=== PATIENT | male | born 1965 | race Caucasian/White ===

== ENCOUNTER 2017-04-28 19:13 | Observation (INO) | payer OTHER ==
[2017-04-28] VITALS (12 sets, daily range): BP systolic 122–181; BP diastolic 72–110; PULSE 75–112; RESP 16–20; TEMP 96.1–98.2; O2SAT 97–99
[~2017-04-28] VITALS: Ht 182.9 cm; Wt 91.4 kg
[~2017-04-28 19:13] MED LIST: AMLO5 PO; ASPI325T PO; ATOR40TA49 PO; LEVE500 PO
[2017-04-28] MEDS: NITROGLYCERIN 0.4 MG SL 25 TABS/BTL SL SCH ×3 (19:44→20:12)
[2017-04-28] MEDS ORDERED: ASPIRIN 81 MG CHEW TAB PO ONE (19:45)
[2017-04-28] MEDS ORDERED: SODIUM CHLORIDE 0.9% FLUSH 10 ML FLUSH IVF PRN (19:45)
[2017-04-28 19:47] LABS: AUTOMATED NEUTROPHIL # 8.1 TH/MM3 (1.8-7.7); BASOPHIL # 0.1 TH/MM3 (0-0.2); BASOPHIL % 1.1 % (0.0-2.0); EOSINOPHIL # 0.2 TH/MM3 (0-0.4); EOSINOPHIL % 1.8 % (0.0-4.0); HEMATOCRIT 49.2 % (39.0-51.0); HEMO FLAGS DIFF FINAL; LYMPH % 19.3 % (9.0-44.0); LYMPHOCYTE # 2.2 TH/MM3 (1.0-4.8); MEAN CELL VOLUME 94.5 FL (80.0-100.0); MEAN CORPUSCULAR HEMOGLOBIN 32.6 PG (27.0-34.0); MEAN CORPUSCULAR HGB CONC 34.5 % (32.0-36.0); MONO % 7.5 % (0.0-8.0); NEUT % 70.3 % (16.0-70.0); PLATELET COUNT 175 TH/MM3 (150-450); RED BLOOD COUNT 5.21 MIL/MM3 (4.50-5.90); RED CELL DISTRIBUTION WIDTH 12.2 % (11.6-17.2); WHITE BLOOD COUNT 11.5 TH/MM3 (4.0-11.0)
[2017-04-28 19:57] LABS: CHLORIDE 105 MEQ/L (98-107); POTASSIUM 3.7 MEQ/L (3.5-5.1); SODIUM (NA) 137 MEQ/L (136-145)
[2017-04-28 20:00] LABS: ANION GAP 7 MEQ/L (5-15); BLOOD UREA NITROGEN 15 MG/DL (7-18); MAGNESIUM 2.2 MG/DL (1.5-2.5)
[2017-04-28 20:03] LABS: APTT (PATIENT) 27.6 SEC (24.3-30.1); GLOMERULAR FILTRATION RATE 78 ML/MIN (>89); PROTHROMBIN TIME - PATIENT 11.3 SEC (9.8-11.6)
[2017-04-28] MEDS: SODIUM CHLOR 0.9% 1000 ML INJ 1,000 ML IV SCH ×2 (20:05→21:19)
[2017-04-28 20:06] LABS: CREATINE KINASE 128 U/L (39-308)
[2017-04-28 20:19] LABS: CKMB 1.1 NG/ML (0.5-3.6)
--- NOTE | 2017-04-28 20:21 | PD ---
HPI Chief Complaint: Chest Pain Time Seen by Provider: 19:30 Travel History International Travel<30 days: No Contact w/Intl Traveler<30days: No Traveled to known affect area: No History of Present Illness HPI 51 year-old male presents to the emergency department by private transportation the care of his spouse for evaluation of retrosternal chest pain and tightness 6 /10 in intensity radiating into the neck and jaw and also complains of left shoulder pain that is worsened by range of motion. Patient does not report any shortness of breath but has felt nauseated. states that she called him stating that he felt like he was having some sweats as well. Pain does not refer into his back and he denies any abdominal pain. Patient has history of CAD with previous angioplasty by Dr. Rosario several years ago and has hypertension and does smoke cigarettes. Patient denies diabetes. Patient states he tries to be compliant with his medications. Patient did not take any aspirin prior to arrival to the emergency department. Patient does not take nitroglycerin. Patient also admits to occasional alcohol use. Patient reports that his brother at age 57 just recently of a heart attack in his father within the past year from myocardial infarction. [facility] Past Medical History Narrative Medical CAD hypertension dyslipidemia tia seizure pancreatitis GERD cholecystectomy and angioplasty positive tobacco use positive alcohol use; nursing notes reviewed Cancer: No Cardiovascular Problems: Yes High Cholesterol: Yes Diminished Hearing: No Endocrine: No Gastrointestinal Disorders: Yes GERD: Yes Genitourinary: No Hypertension: Yes Immune Disorder: No Implanted Vascular Access Dvce: No Musculoskeletal: No Neurologic: No Psychiatric: No Reproductive: No Respiratory: No Pancreatitis: Yes Past Surgical History Abdominal Surgery: Yes (GALLBLADDER) Cardiac Surgery: Yes (ANGIOPLASTY 2004) Cholecystectomy: Yes Other Surgery: Yes Social History Alcohol Use: Yes (RARELY) Tobacco Use: Yes (1 PPD) Substance Use: No Allergies-Medications (Allergen,Severity, Reaction): Coded Allergies: clindamycin (Unverified Allergy, Severe, Respiratory Failure, 02/04/17) codeine (Unverified Allergy, Intermediate, itch, 02/04/17) Reported Meds & Prescriptions Reported Meds & Active Scripts Active No Active Prescriptions or Reported Medications Review of Systems Except as stated in HPI: all other systems reviewed are Neg Musculoskeletal: Positive: Pain (left shoulder increased pain with range of motion and limited abduction) Physical Exam Narrative GENERAL: Well-developed well-nourished male mildly anxious in no respiratory distress SKIN: Warm and dry. HEAD: Normocephalic. EYES: No scleral icterus. No injection or drainage. NECK: Supple, trachea midline. No JVD or lymphadenopathy. CARDIOVASCULAR: Regular rate and rhythm without murmurs, gallops, or rubs. RESPIRATORY: Breath sounds equal bilaterally. No accessory muscle use. GASTROINTESTINAL: Abdomen soft, non-tender, nondistended. MUSCULOSKELETAL: No cyanosis, or edema. Attention left shoulder no deformity no soft tissue swelling or redness no induration tender to palpation with increased pain on range of motion especially with attempted abduction distally extremity is neurovascular tendon intact with 2+ radial and ulnar pulses capillary refill brisk and less than 2 seconds per digit sensory exam intact capillary refill brisk and less than 2 seconds. BACK: Nontender without obvious deformity. No CVA tenderness. Data Data Last Documented VS Vital Signs Date Time Temp Pulse Resp B/P (MAP) Pulse Ox O2 Delivery O2 Flow Rate FiO2 04/28/17 20:28 141/85 (103) 04/28/17 20:00 90 04/28/17 19:50 16 04/28/17 19:45 98.2 98 Nasal Cannula 2.00 Orders Orders Electrocardiogram (04/28/17 19:31) Basic Metabolic Panel (Bmp) (04/28/17 19:31) Ckmb (Isoenzyme) Profile (04/28/17 19:31) Complete Blood Count With Diff (04/28/17 19:31) Magnesium (Mg) (04/28/17 19:31) Prothrombin Time / Inr (Pt) (04/28/17 19:31) Act Partial Throm Time (Ptt) (04/28/17 19:31) Troponin I (04/28/17 19:31) Chest, Single Ap (04/28/17 19:31) Ecg Monitoring (04/28/17 19:31) Bilateral Bp Monitoring (04/28/17 19:31) Iv Access Insert/Monitor (04/28/17 19:31) Oximetry (04/28/17 19:31) Oxygen Administration (04/28/17 19:31) Aspirin Chew (Aspirin Chew) (04/28/17 19:45) Nitroglycerin Sl (Nitrostat Sl) (04/28/17 19:45) Sodium Chlor 0.9% 1000 Ml Inj (Ns 1000 M (04/28/17 20:00) CKMB (04/28/17 19:35) CKMB% (04/28/17 19:35) Ketorolac Inj (Toradol Inj) (04/28/17 20:30) Lipase (04/28/17 19:35) Admit Order (Ed Use Only) (04/28/17 ) Gas Desulfurizer / Telemetry JOSE LUIS.Q8H (04/28/17 20:43) Diet Heart Healthy (04/29/17 Breakfast) Activity Oob With Assistance (04/28/17 20:43) Notify Dr: Other (04/28/17 20:43) Labs Laboratory Tests Test 04/28/17 19:35 White Blood Count 11.5 TH/MM3 Red Blood Count 5.21 MIL/MM3 Hemoglobin 17.0 GM/DL Hematocrit 49.2 % Mean Corpuscular Volume 94.5 FL Mean Corpuscular Hemoglobin 32.6 PG Mean Corpuscular Hemoglobin Concent 34.5 % Red Cell Distribution Width 12.2 % Platelet Count 175 TH/MM3 Mean Platelet Volume 10.6 FL Neutrophils (%) (Auto) 70.3 % Lymphocytes (%) (Auto) 19.3 % Monocytes (%) (Auto) 7.5 % Eosinophils (%) (Auto) 1.8 % Basophils (%) (Auto) 1.1 % Neutrophils # (Auto) 8.1 TH/MM3 Lymphocytes # (Auto) 2.2 TH/MM3 Monocytes # (Auto) 0.9 TH/MM3 Eosinophils # (Auto) 0.2 TH/MM3 Basophils # (Auto) 0.1 TH/MM3 CBC Comment DIFF FINAL Differential Comment Prothrombin Time 11.3 SEC Prothromb Time International Ratio 1.0 RATIO Activated Partial Thromboplast Time 27.6 SEC Blood Urea Nitrogen 15 MG/DL Creatinine 1.00 MG/DL Random Glucose 99 MG/DL Calcium Level 8.4 MG/DL Magnesium Level 2.2 MG/DL Sodium Level 137 MEQ/L Potassium Level 3.7 MEQ/L Chloride Level 105 MEQ/L Carbon Dioxide Level 25.0 MEQ/L Anion Gap 7 MEQ/L Estimat Glomerular Filtration Rate 78 ML/MIN Total Creatine Kinase 128 U/L Creatine Kinase MB 1.1 NG/ML Troponin I LESS THAN 0.02 NG/ML Lipase 388 U/L MDM Medical Decision Making Medical Screen Exam Complete: Yes Emergency Medical Condition: Yes Medical Record Reviewed: Yes Interpretation(s) EKG: Normal sinus rhythm rate [address] elevation or injury pattern change noted nonspecific T-wave inversion inferiorly Chest x-ray: No acute abnormality CBC & BMP Diagram 04/28/17 19:35 Calcium Level 8.4 L, Magnesium Level 2.2 Troponin I: Less than 0.02, not elevated; CK total 128, not elevated MB 1.1, not elevated Differential Diagnosis Chest pain, ACS, OR, atypical chest pain, esophageal spasm, pancreatitis, aneurysm, dissection, left shoulder bursitis rotator cuff injury musculoskeletal pain Narrative Course Patient placed on playground monitor and continuous pulse oximetry IV access obtained specimens collected and sent for resulting EKG performed which reveals no acute injury pattern sinus rhythm; patient administered aspirin 162 mg by mouth and sublingual nitroglycerin Pain 7/10 in intensity has decreased to 2/10 intensity after 2 nitroglycerin and after third nitroglycerin discomfort is 0/10 in intensity; blood pressure has improved to a more normalized range. Patient continues to demonstrate range of motion pain to the left shoulder joint. Extremities otherwise neurovascular tendon intact. Cardiac enzymes CK and troponin I are found to be in normal range: Remainder of lab findings are grossly range: Chest x-ray reveals no acute process @ 8:23 PM patient cp: 0/10; patient is agreeable to [facility] obs admission @ 10:24 again complains of left shoulder pain with range of motion worsens with internal/external rotation specifically extension and abduction increased pain significantly localized to the superior aspect of the left shoulder and has inability to completely abduct greater than 90 concerning for rotator cuff injury as well as inflammatory pain no chest pain no chest tightness no referred neck or jaw pain that were present when he arrived prior to receiving sublingual nitroglycerin states he has had this shoulder pain for a couple days and doesn't recall specific injury extremity is otherwise neurovascularly tendon intact. Patient did receive a one-time dose of Toradol with only minimal relief and patient reports he has taken pain medication before such as Percocet for Lortab with out any adverse reaction. Plan to give patient one time dose of Percocet 5/325 however have been informed by patient's nurse that she has a call out to the admitting physician will defer to the admitting physician for pain management. Physician Communication Physician Communication call placed to patient's party host; call placed to [facility] service for MORTGAGE ADVISOR obs HHPO Diagnosis Primary Impression: Chest pain Qualified Codes: R07.2 - Precordial pain Additional Impression: Pain of left shoulder joint on movement Admitting Information Admitting Physician Requests: Observation Scripts No Active Prescriptions or Reported Meds Katie Obregon MD Apr 28, 2017 20:21
[2017-04-28] MEDS ORDERED: KETOROLAC TROMETHAMINE 30 MG/ML (IVP) VIAL IV PUSH ONE (20:30)
--- NOTE | 2017-04-28 20:52 | RADRPT ---
EXAM DATE/TIME: 04/28/2017 19:52 [place] COMPARISON: CHEST SINGLE AP, May 26, 2013, 8:57. INDICATIONS : Chest pain. MEDICAL HISTORY : Hypertension. SURGICAL HISTORY : None. ENCOUNTER: Initial ACUITY: 1 day PAIN SCORE: 5/10 LOCATION: Left chest FINDINGS: Portable AP view of the chest demonstrates a normal-sized cardiac silhouette. No effusion, consolidat ion, or pneumothorax is visualized. The bones and soft tissues demonstrate no acute abnormality. EKG lines overlie the patient. CONCLUSION: No acute cardiopulmonary abnormality is identified. Maco Ferris MD on April 28, 2017 at 20:50 Board Certified Radiologist. This report was verified electronically.
[2017-04-28] MEDS: SODIUM CHLORIDE 0.9% FLUSH 10 ML FLUSH IV FLUSH SCH (21:00)
[2017-04-28] MEDS ORDERED: NITROGLYCERIN 0.4 MG SL 25 TABS/BTL SL PRN ×2 (21:00)
[2017-04-28] MEDS ORDERED: SODIUM CHLORIDE 0.9% FLUSH 10 ML FLUSH IV FLUSH PRN (21:00)
[2017-04-28] MEDS: METOPROLOL TARTRATE 25 MG TAB PO SCH (21:24)
[2017-04-28] MEDS: FAMOTIDINE 20 MG TAB PO SCH (21:24)
[2017-04-28] MEDS: ENOXAPARIN SODIUM 100 MG/ML SYRINGE SQ SCH (21:25)
[2017-04-28 23:00] LABS: CREATINE KINASE 106 U/L (39-308)
[2017-04-29] VITALS (7 sets, daily range): BP systolic 121–186; BP diastolic 66–109; PULSE 65–77; RESP 18–20; TEMP 96–97.8; O2SAT 96–99
[2017-04-29] MEDS ORDERED: HYDROmorphone HCL PF 1 MG/ML VIAL IV PUSH ONE (00:45)
[2017-04-29 02:27] LABS: CREATINE KINASE 109 U/L (39-308)
[2017-04-29] MEDS: SODIUM CHLOR 0.9% 1000 ML INJ 1,000 ML IV SCH (04:22)
[2017-04-29 06:51] LABS: POTASSIUM 4.3 MEQ/L (3.5-5.1)
[2017-04-29 06:57] LABS: BICARBONATE 28.3 MEQ/L (21.0-32.0)
[2017-04-29 06:58] LABS: AUTOMATED NEUTROPHIL # 5.9 TH/MM3 (1.8-7.7); BASOPHIL % 0.4 % (0.0-2.0); EOSINOPHIL # 0.2 TH/MM3 (0-0.4); EOSINOPHIL % 2.4 % (0.0-4.0); HEMATOCRIT 44.5 % (39.0-51.0); LYMPHOCYTE # 2.3 TH/MM3 (1.0-4.8); MEAN CELL VOLUME 94.4 FL (80.0-100.0); MEAN CORPUSCULAR HEMOGLOBIN 32.1 PG (27.0-34.0); MONO % 9.7 % (0.0-8.0); NEUT % 62.5 % (16.0-70.0); PLATELET COUNT 137 TH/MM3 (150-450); RED BLOOD COUNT 4.71 MIL/MM3 (4.50-5.90); RED CELL DISTRIBUTION WIDTH 12.3 % (11.6-17.2); WHITE BLOOD COUNT 9.3 TH/MM3 (4.0-11.0)
[2017-04-29 07:08] LABS: HEMO FLAGS DIFF FINAL
[2017-04-29] MEDS: METOPROLOL TARTRATE 25 MG TAB PO SCH (08:03)
[2017-04-29] MEDS: ENOXAPARIN SODIUM 100 MG/ML SYRINGE SQ SCH (08:03)
[2017-04-29] MEDS: FAMOTIDINE 20 MG TAB PO SCH (08:03)
[2017-04-29] MEDS: SODIUM CHLORIDE 0.9% FLUSH 10 ML FLUSH IV FLUSH SCH (08:04)
[2017-04-29] MEDS ORDERED: ASPIRIN 325 MG TAB PO SCH (09:00)
--- NOTE | 2017-04-29 09:16 | EKG ---
Date Performed: 04/29/2017 Time Performed: 01:28:34 PTAGE: 51 years EKG: Sinus rhythm NORMAL ECG Since PREVIOUS TRACING , no significant change noted PREVIOUS TRACIN04/28/2017 22.35 DOCTOR: Shabnam Childress Interpretating Date/Time 04/29/2017 09:14:57
--- NOTE | 2017-04-29 09:16 | EKG ---
Date Performed: 04/28/2017 Time Performed: 22:35:23 PTAGE: 51 years EKG: Sinus rhythm NONSPECIFIC T-WAVE ABNORMALITY ABNORMAL ECG Since PREVIOUS TRACING , no significant change noted PREVIOUS TRACIN04/28/2017 19.29 DOCTOR: Shabnam Childress Interpretating Date/Time 04/29/2017 09:15:10
--- NOTE | 2017-04-29 09:17 | EKG ---
Date Performed: 04/28/2017 Time Performed: 19:29:32 PTAGE: 51 years EKG: Sinus rhythm NONSPECIFIC T-WAVE ABNORMALITY BORDERLINE ECG Since PREVIOUS TRACING , no significant change noted DOCTOR: Shabnam Childress Interpretating Date/Time 04/29/2017 09:15:52
[2017-04-29] MEDS ORDERED: ACETAMINOPHEN/HYDROcodone 325 MG/7.5 MG TAB PO ONE (13:15)
[2017-04-29] MEDS ORDERED: LIDOCAINE HCL 5% PATCH T-DERMAL SCH ×2 (13:15→13:19)
--- NOTE | 2017-04-29 13:56 | EKG ---
Date Performed: 04/29/2017 Time Performed: 11:32:21 PTAGE: 51 years EKG: Sinus rhythm NORMAL ECG Since PREVIOUS TRACING , no significant change noted PREVIOUS TRACIN04/29/2017 01.28 DOCTOR: Shabnam Childress Interpretating Date/Time 04/29/2017 13:55:41
--- NOTE | 2017-04-29 14:18 | HHI.HP ---
HPI Service [facility] Primary Care Physician Non-Staff Admission Diagnosis chest pain Diagnoses: (1) Chest pain Diagnosis: Principal (2) Pain of left shoulder joint on movement Diagnosis: Principal Chief Complaint: Chest pain, left shoulder pain Travel History International Travel<30 Days: No Contact w/Intl Traveler <30 Da: No Traveled to Known Affected Are: No History of Present Illness Written by Jame Lopez, acting as scribe for Dr. Fregoso on 04/29/17 at 14 :13. 51 year-old male with known history of hypertension, hyperlipidemia, chronic obstructive pulmonary disease, history of pancreatitis, coronary artery disease who presented to the hospital because of chest pain and left shoulder pain. Patient states that he is had over 2 week history of Intermittent chest pain and left shoulder pain. Patient was trying to obtain outpatient follow-up with his pivot maker Dr. Rosario. However, patient states that there were no appointments available until May 06. Over last 2 weeks he has been experiencing chest discomfort which he describes as a tightness sensation in the middle part of his chest with radiation to his left shoulder. He did have some associated nausea. He denied any vomiting, lower extremity edema, shortness of breath, or dyspnea. Patient indicates that the pain was made worse by lying down. He indicates that he is been under a lot of stress lately with the loss of his mother, father and brother. His brother just from heart attack. The patient was home by himself yesterday and he developed the chest discomfort with left shoulder pain with associated nausea, he was concerned that it may be related to his heart so he had his bring him to the hospital for evaluation. Patient had workup done emergency department which was unremarkable. He was given Toradol emergency department with relief of his pain. ER physician recommended patient be observed and chest pain center for further evaluation and management. His states that he is not compliant with his home meds. Review of Systems Cardiovascular: COMPLAINS OF: Chest pain Gastrointestinal: COMPLAINS OF: Nausea Musculoskeletal: COMPLAINS OF: Joint pain (left shoulder) Except as stated in HPI: all other systems reviewed are Neg Past Family Social History Past Medical History Hypertension Hyperlipidemia History of pancreatitis History TIA Chronic tobacco use Chronic obstructive pulmonary disease Past Surgical History Cardiac catheterization with angioplasty Cholecystectomy Reported Medications Patient not taking any medications at this time Allergies: Coded Allergies: clindamycin (Unverified Allergy, Severe, Respiratory Failure, 02/04/17) codeine (Unverified Allergy, Intermediate, itch, 02/04/17) Family History Reviewed is significant for early onset heart disease. Social History Patient continues to smoke 2 pack a cigarettes a day since his 20s. He drinks 2 glasses of wine 4-5 times weekly, denies any illicit drugs Physical Exam Vital Signs Vital Signs Date Time Temp Pulse Resp B/P (MAP) Pulse Ox O2 Delivery O2 Flow Rate FiO2 04/29/17 11:51 96 21 04/29/17 08:00 65 04/29/17 08:00 96.0 68 18 165/105 (125) 97 04/29/17 04:00 96.0 77 20 121/66 (84) 96 04/28/17 23:26 75 04/28/17 23:15 96.1 79 20 158/98 (118) 97 04/28/17 22:30 77 16 148/72 (97) 04/28/17 21:27 98 Nasal Cannula 2.00 04/28/17 20:56 77 16 122/73 (89) 99 Nasal Cannula 2.00 04/28/17 20:28 141/85 (103) 04/28/17 20:10 153/91 (111) 04/28/17 20:00 90 143/83 (103) 04/28/17 19:55 92 137/86 (103) 04/28/17 19:50 96 16 164/79 (107) 04/28/17 19:45 98.2 98 16 180/101 (127) 98 Nasal Cannula 2.00 04/28/17 19:30 112 16 181/110 (133) 98 04/28/17 19:30 98 04/28/17 19:30 98 Nasal Cannula 2.00 Physical Exam GENERAL: Well-developed, well-nourished, in no acute distress. alert and orientated HEENT: Head is normocephalic without any lesions or masses noted. Facial features are symmetric. Eyes: Extraocular muscles are intact. Conjunctivae were clear. Oropharyngeal: Pharynx without any erythema edema. Tongue is midline without deviation. Buccal mucosa is moist without any masses or lesions NECK: . No JVD, no bruits are appreciated CARDIAC: Regular rhythm, regular rate. S1/S2 are heard. No murmurs gallops or rubs. Patient has reproducible palpable tenderness noted over the right sternal border which he describes as exact pain that he been experiencing the last couple weeks LUNGS: Clear to auscultation bilaterally. No wheeze, rhonchi or rales. No use of accessory muscles on inspiration or expiration. ABDOMEN: Soft, nontender. Nondistended. Bowel sounds heard in all 4 quadrants. No organomegaly or masses. Negative rebound, negative guarding EXTREMITIES: No edema, pulses are equal bilaterally. No cyanosis or clubbing NEUROLOGY: No facial droop, no slurred speech, no tremors Psychiatry: Mood and affect appear appropriate. MSK: Patient does have significant tenderness noted over the left shoulder, there is left trapezius musculature tenderness, there is pain on left shoulder with resistance of external rotation. This pain is reproducible and exact pain that he been experiencing. + Edwards test on left arm. no TTP over biceps groove. Laboratory Laboratory Tests Test 04/28/17 19:35 04/28/17 22:30 04/29/17 01:55 04/29/17 06:25 White Blood Count 11.5 9.3 Red Blood Count 5.21 4.71 Hemoglobin 17.0 15.1 Hematocrit 49.2 44.5 Mean Corpuscular Volume 94.5 94.4 Mean Corpuscular Hemoglobin 32.6 32.1 Mean Corpuscular Hemoglobin Concent 34.5 34.0 Red Cell Distribution Width 12.2 12.3 Platelet Count 175 137 Mean Platelet Volume 10.6 11.7 Neutrophils (%) (Auto) 70.3 62.5 Lymphocytes (%) (Auto) 19.3 25.0 Monocytes (%) (Auto) 7.5 9.7 Eosinophils (%) (Auto) 1.8 2.4 Basophils (%) (Auto) 1.1 0.4 Neutrophils # (Auto) 8.1 5.9 Lymphocytes # (Auto) 2.2 2.3 Monocytes # (Auto) 0.9 0.9 Eosinophils # (Auto) 0.2 0.2 Basophils # (Auto) 0.1 0.0 CBC Comment DIFF FINAL DIFF FINAL Differential Comment Prothrombin Time 11.3 Prothromb Time International Ratio 1.0 Activated Partial Thromboplast Time 27.6 Blood Urea Nitrogen 15 14 Creatinine 1.00 0.98 Random Glucose 99 100 Calcium Level 8.4 7.8 Magnesium Level 2.2 Sodium Level 137 138 Potassium Level 3.7 4.3 Chloride Level 105 106 Carbon Dioxide Level 25.0 28.3 Anion Gap 7 4 Estimat Glomerular Filtration Rate 78 80 Total Creatine Kinase 128 106 109 102 Creatine Kinase MB 1.1 1.0 1.0 Troponin I LESS THAN 0.02 LESS THAN 0.02 LESS THAN 0.02 Lipase 388 Test 04/29/17 13:30 Result Diagram: 04/29/1725 04/29/17624 Imaging Last Impressions Chest X-Ray 04/28/17 193 Signed Impressions: Service Date/Time: Friday, April 28, 2017 19:52 - CONCLUSION: No acute cardiopulmonary abnormality is identified. MD Alejandra Garcia VTE Risk Assessment Alejandra VTE Risk Assessment: Mod/High Risk (score >= 2) Caprini Risk Assessment Model Point Value = 1 Point Value = 2 Point Value = 3 Point Value = 5 Age 41-60 Minor surgery BMI > 25 kg/m2 Swollen legs Varicose veins or History of unexplained or recurrent spontaneous Oral contraceptives or hormone replacement Sepsis (< 1 month) Serious lung disease, including pneumonia (< 1 month) Abnormal pulmonary function Acute myocardial infarction Congestive heart failure (< 1 month) History of inflammatory bowel disease Medical patient at bed rest Age 61-74 Arthroscopic surgery Major open surgery (> 45 min) Laparoscopic surgery (> 45 min) Malignancy Confined to bed (> 72 hours) Immobilizing plaster cast Central venous access Age >= 75 History of VTE Family history of VTE Factor V Leiden Prothrombin [id number] Lupus anticoagulant Anticardiolipin antibodies Elevated serum homocysteine Heparin-induced thrombocytopenia Other congenital or acquired thrombophilia Stroke (< 1 month) Elective arthroplasty Hip, pelvis, or leg fracture Acute spinal cord injury (< 1 month) Prophylaxis Regimen Total Risk Factor Score Risk Level Prophylaxis Regimen 0-1 Low Early ambulation 2 Moderate Order ONE of the following: *Sequential Compression Device (SCD) *Heparin 5000 units SQ BID 3-4 Higher Order ONE of the following medications: *Heparin 5000 units SQ TID *Enoxaparin/Lovenox 40 mg SQ daily (WT < 150 kg, CrCl > 30 mL/min) *Enoxaparin/Lovenox 30 mg SQ daily (WT < 150 kg, CrCl > 10-29 mL/min) *Enoxaparin/Lovenox 30 mg SQ BID (WT < 150 kg, CrCl > 30 mL/min) AND/OR *Sequential Compression Device (SCD) 5 or more Highest Order ONE of the following medications: *Heparin 5000 units SQ TID (Preferred with Epidurals) *Enoxaparin/Lovenox 40 mg SQ daily (WT < 150 kg, CrCl > 30 mL/min) *Enoxaparin/Lovenox 30 mg SQ daily (WT < 150 kg, CrCl > 10-29 mL/min) *Enoxaparin/Lovenox 30 mg SQ BID (WT < 150 kg, CrCl > 30 mL/min) AND *Sequential Compression Device (SCD) Assessment and Plan Assessment and Plan Chest pain, atypical - Patient has have increased risk factors to include hypertension, hyperlipidemia, chronic tobacco use, family history of heart disease, age - Patient has been ruled out for acute coronary event with serial cardiac enzymes and have remained negative - Serial EKGs show normal sinus rhythm without any changes independently reviewed by Dr. Fregoso showed no significant ST segment changes concerning for ischemia or infarction - We'll pursue exercise stress test rule out any underlying ischemia - After clinical examination, patient has significant musculoskeletal issues related to his left shoulder as well as costochondritis - Continue aspirin, nitroglycerin as needed - Modified and typical well scores are less than 2, d-dimer is negative, no further workup for any pulmonary embolism needed. Accelerated hypertension, due to medication noncompliance - Patient started on metoprolol 25 mg twice daily Left shoulder pain - Likely musculoskeletal - Continue rest, ice, elevation, anti-inflammatory - Patient will require outpatient follow-up DVT prevention - Sequential compression devices This note was transcribed by jacque Lopez. I, Cuba Fregoso, personally performed the history, physical exam, and medical decision making; and confirmed the accuracy of information in the transcribed note. Authenticated by Cuba Fregoso on 2:59 PM on 04/29/17. All orders entered by Marcio Lopez were at my discretion. I independently reviewed EKG which shows no acute ST segment changes concerning for ischemia or infarction. Exercise stress test was performed and was negative. Patient was discharged in stable condition and was counseled that his pain was not reflective of acute ischemic heart disease but rather acid reflux and or musculoskeletal straining and that he should follow up with his PCP within 1-2 weeks. Problem Qualifiers (1) Chest pain: Qualified Codes: R07.2 - Precordial pain Jame Lopez Apr 29, 2017 14:18 Cuba Fregoso MD Apr 29, 2017 15:03
--- NOTE | 2017-04-29 15:27 | HHI.DCPOC ---
Discharge Care Plan Diagnosis: (1) Chest pain (2) Pain of left shoulder joint on movement Your Health Problems Are: Chest Pain Goals to Promote Your Health * To prevent worsening of your condition and complications * To maintain your health at the optimal level Directions to Meet Your Goals Take your medications as prescribed Follow your dietary instruction Follow activity as directed Keep your appointments as scheduled Take your immunizations and boosters as scheduled If your symptoms worsen call your PCP, if no PCP go to Urgent Care Center or Emergency Room Smoking is Dangerous to Your Health. Avoid second hand smoke Call the 24-hour hour crisis hotline for domestic abuse at Jame Lopez Apr 29, 2017 15:27
[2017-04-29] MEDS ORDERED: ENALAPRILAT 1.25 MG/ML VIAL IV PUSH ONE (16:15)
[2017-04-29] MEDS ORDERED: LORazepam 2 MG/ML VIAL IV PUSH ONE (16:15)
[2017-04-29] MEDS ORDERED: AMLO10TA2 PO (16:24)
[2017-04-29] MEDS ORDERED: cloNIDine HCL 0.1 MG TAB PO ONE (16:30)
[2017-04-29] MEDS ORDERED: REMOVE OLD LIDOCAINE PATCH T-DERMAL SCH (21:00)
[2017-04-30] MEDS ORDERED: PNEUMOCOCCAL POLYVALENT INJ 25 MCG/0.5 ML SYR IM ONE (10:00)
[2017-04-30] MEDS ORDERED: INFLUENZA VIRUS VACCINE (QUADRIVALENT) 0.5 ML SYR IM ONE (10:00)
--- NOTE | 2017-05-01 06:54 | TR ---
Date Performed: 04/29/2017 Time Performed: 14:21:54 DOCTOR: Shabnam Childress DRUG LIST: CLINICAL HISTORY: REASON FOR TEST: REASON FOR ENDING: Completed Protocol OBSERVATION: Chest Pain: None CONCLUSION: Patient tolerated MARGUERITE protocol with Total Exercise Time=9:29 Maximum WB=263 % Max HR Achieved=86.0% Maximum ZN=944/98, Patient asymptomatic throughtout testing, Testing stopped second radha to goals acheived, Patient reached target HR. During peak exercise. quick upsloping ST segments. HR and BP appropriate response to exercise. Recovery period, HR and BP returned to baseline COMMENTS:
--- NOTE | 2017-05-01 10:05 | ECHRPT ---
Indication: CONCLUSIONS The left ventricular systolic function is normal with an estimated ejection fraction in the range of 55-60%. Normal left ventricular size. Mild mitral valve regurgitation. No aortic valve regurgitation. There is mild tricuspid valve regurgitation. The estimated pulmonary arterial pressure is 26.8 mmHg. BP: / HR: Rhythm: Sinus MEASUREMENTS (Male / Female) Normal Values Technical Quality:Good 2D ECHO LV Diastolic Diameter PLAX 3.9 cm 4.2 - 5.9 / 3.9 - 5.3 cm LV Systolic Diameter PLAX 2.9 cm IVS Diastolic Thickness 1.3 cm 0.6 - 1.0 / 0.6 - 0.9 cm LVPW Diastolic Thickness 1.1 cm 0.6 - 1.0 / 0.6 - 0.9 cm LV Relative Wall Thickness 0.6 RV Internal Dim ED PLAX 2.9 cm M-MODE Aortic Root Diameter MM 3.3 cm LA Systolic Diameter MM 3.1 cm LA Ao Ratio MM 0.9 AV Cusp Separation MM 2.2 cm DOPPLER Mitral E Point Velocity 90.3 cm/s Mitral A Point Velocity 69.1 cm/s Mitral E to A Ratio 1.3 LV E' Lateral Velocity 8.7 cm/s Mitral E to LV E' Lateral Ratio 10.4 LV E' Septal Velocity 8.3 cm/s Mitral E to LV E' Septal Ratio 10.9 TR Peak Velocity 205.0 cm/s TR Peak Gradient 16.8 mmHg Right Atrial Pressure 10.0 mmHg Pulmonary Artery Systolic Pressu 26.8 mmHg Right Ventricular Systolic Press 26.8 mmHg FINDINGS LEFT VENTRICLE The left ventricular systolic function is normal with an estimated ejection fraction in the range of 55-60%. Normal left ventricular size. RIGHT VENTRICLE Normal right ventricular size and systolic function. LEFT ATRIUM The left atrial size is normal. RIGHT ATRIUM The right atrial size is normal. ATRIAL SEPTUM Normal atrial septal thickness without atrial level shunting by limited color doppler interrogation. AORTA The aortic root and proximal ascending aorta are normal in size on limited imaging. MITRAL VALVE Mild mitral valve regurgitation. Structurally normal mitral valve. AORTIC VALVE Trileaflet aortic valve. No aortic valve regurgitation. TRICUSPID VALVE There is mild tricuspid valve regurgitation. The estimated pulmonary arterial pressure is 26.8 mmHg. Structurally normal tricuspid valve. PULMONARY VALVE No pulmonary valve regurgitation or stenosis. VESSELS The inferior vena cava is normal in size. PERICARDIUM No pericardial effusion. Magdaleno Murphy MD (Electronically Signed) Final Date:01 May 2017 10:04
== END 2017-04-29 17:25 | disposition home or self-care (01) ==
LOC: PHED 19:13 → PHEDA 20:44 → PH3A 23:07
PROVIDERS: ADMIT Hospitalist; ATTEND Hospitalist
DX: R07.89 Other chest pain (principal); M25.512 Pain in left shoulder; I25.10 Atherosclerotic heart disease of native coronary artery without angina pectoris; I10 Essential (primary) hypertension; K21.9 Gastro-esophageal reflux disease without esophagitis; R56.9 Unspecified convulsions; J44.9 Chronic obstructive pulmonary disease, unspecified; E78.00 Pure hypercholesterolemia, unspecified; F17.210 Nicotine dependence, cigarettes, uncomplicated; R94.31 Abnormal electrocardiogram [ECG] [EKG]; K86.1 Other chronic pancreatitis; K86.81 Exocrine pancreatic insufficiency; Z86.73 Personal history of transient ischemic attack (TIA), and cerebral infarction without residual deficits
CPT/HCPCS: 71010; 80048; 82550; 82552; 83690; 83735; 84484; 85025; 85379; 85610; 85730; 93005; 93017; 93306; 96361; 96372; 96374; 96375; 99285; G0378; J1170; J1650; J1885; J7030

== ENCOUNTER 2018-06-04 16:07 | Observation (INO) ==
[2018-06-04] MEDS ORDERED: Morphine Inj 4 MG/ML Vial IV.PUSH ONE (16:27)
--- NOTE | 2018-06-04 16:47 | XR ---
EXAM DATE: 06/04/2018 4:42 PM EST AGE/SEX: 52 years / Male INDICATIONS: Chest pain since last night. CLINICAL DATA: This is the patient's initial encounter. Patient reports that signs and symptoms have been present for 1 day and indicates a pain score of 3/10. MEDICAL/SURGICAL HISTORY: None. None. COMPARISON: PO, CHEST SINGLE AP, 04/28/2017. . FINDINGS: A single AP view of the chest demonstrates the lungs to be symmetrically aerated without evidence of mass, infiltrate or effusion. The cardiomediastinal contours are unremarkable. Osseous structures a re intact. CONCLUSION: No acute cardiopulmonary disease. Electronically signed by: Ej Radford MD Board Certified Radiologist 06/04/2018 4:46 PM EST
[2018-06-04 16:52] LABS: Baso # (Auto) 0.1 th/mm3 (0.0-0.2); Baso % (Auto) 0.8 % (0.0-2.0); Eos # (Auto) 0.2 th/mm3 (0.0-0.4); Eos % (Auto) 2.3 % (0.0-4.0); Hematocrit 48.2 % (39.0-51.0); Hemoglobin 16.5 gm/dL (13.0-17.0); Lymph # (Auto) 1.8 th/mm3 (1.0-4.8); Lymph % (Auto) 21.3 % (9.0-44.0); Mean Corpuscular HGB Conc 34.2 % (32.0-36.0); Mean Corpuscular Hemoglobin 32.8 pg (27.0-34.0); Mean Corpuscular Volume 96.1 fL (80.0-100.0); Mean Platelet Volume 10.6 fL (7.0-11.0); Mono # (Auto) 0.7 th/mm3 (0.0-0.9); Neut # (Auto) 5.5 th/mm3 (1.8-7.7); Neut % (Auto) 67.6 % (16.0-70.0); Platelet Count 158 th/mm3 (150-450); Red Blood Count 5.02 mil/mm3 (4.50-5.90); Red Cell Distribution Width 12.1 % (11.6-17.2); White Blood Count 8.3 th/mm3 (4.0-11.0)
[2018-06-04 17:09] LABS: Chloride 103 meq/L (98-107); Potassium 3.6 meq/L (3.5-5.1); Sodium 138 meq/L (136-145)
[2018-06-04 17:12] LABS: Calcium 8.8 mg/dL (8.5-10.1)
[2018-06-04 17:13] LABS: Albumin 3.7 g/dL (3.4-5.0); Anion Gap 6 meq/L (5-15); Blood Urea Nitrogen 14 mg/dL (7-18); Carbon Dioxide 29.3 meq/L (21.0-32.0); Glucose,Random 142 mg/dL (74-106); Lipase 387 U/L (73-393); Magnesium 2.2 mg/dL (1.5-2.5)
[2018-06-04 17:15] LABS: Alanine Aminotransferase 96 U/L (12-78)
[2018-06-04 17:16] LABS: Aspartate Aminotransferase 50 U/L (15-37); Glomerular Filtration Rate 78 mL/min (>89)
[2018-06-04 17:17] LABS: Total Protein 7.6 g/dL (6.4-8.2)
[2018-06-04 17:18] LABS: Alkaline Phosphatase 86 U/L (45-117); Creatine Kinase 158 U/L (39-308)
--- NOTE | 2018-06-04 17:30 | ED ---
HPI General Chief Complaint: Chest Pain Stated Complaint: chest pain/sob Xhalf and hour Time Seen by Provider: 06/04/18 16:18 Source: patient Mode of arrival: ambulatory Limitations: no limitations History of Present Illness HPI narrative: 52 yo M c/o retrosternal cp for approximately 1 hour with onset while watching tv on cough. Tightness is quality, very noticeable is severity reported. + Dyspnea. Stress text approximately one year prior here was negative for ischemia. Pt reports coronary cath approximately 15 years ago with angioplasty however no stent was placed. Disk Recordist is Dr Rosario. No radiation of symptoms. No pleuritic component. No fever. + Cough lately, non- productive. + Tobaccoism and HTN. Pt denies HLD. 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 Related Data Home Medications Medication Instructions Recorded Confirmed amlodipine 10 mg PO DAILY 06/04/18 06/04/18 Allergies Allergy/AdvReac Type Severity Reaction Status Date / Time clindamycin Allergy Severe Respiratory Verified 06/04/18 16:10 Failure codeine Allergy Intermediate itch Verified 06/04/18 16:10 Review of Systems ROS: all other systems reviewed are negative [facility] Medical History Medical History CAD (coronary artery disease) (Acute) Elevated cholesterol (Acute) GERD (gastroesophageal reflux disease) (Acute) Hypertension (Acute) Surgical History Surgical History H/O angioplasty (Acute) Social History Social History Substance History: No History of Abuse Smoking Status: Current every day smoker Tobacco Type: Cigarettes How Often Do You Have a Drink Containing Alcohol: 4 or more times a week Recent Travel in [facility] within the Last 8 Weeks: No Recent Out of Country Travel within the Last 8 Weeks: No Immunization History Tetanus Immunization: >5 Years Exam Narrative Exam Narrative: GENERAL: 52 yo M, WNWD, mild distress 2/2 pain and or anxiety SKIN: Focused skin assessment warm/dry. HEAD: Atraumatic. Normocephalic. EYES: Pupils equal and round. No scleral icterus. No injection or drainage. ENT: No nasal bleeding or discharge. Mucous membranes pink and moist. NECK: Trachea midline. No JVD. CARDIOVASCULAR: Regular rate and rhythm. No murmur appreciated. RESPIRATORY: No accessory muscle use. Clear to auscultation. Breath sounds equal bilaterally. GASTROINTESTINAL: Abdomen soft, non-tender, nondistended. Hepatic and splenic margins not palpable. MUSCULOSKELETAL: No obvious deformities. No clubbing. No cyanosis. No edema. NEUROLOGICAL: Awake and alert. No obvious cranial nerve deficits. Motor grossly within normal limits. Normal speech. PSYCHIATRIC: Appropriate mood and affect; insight and judgment normal. Course Initial Documented Vital Signs Temperature 97.1 F L 06/04/18 16:10 Pulse Rate 105 H 06/04/18 16:10 Respiratory Rate 16 06/04/18 16:10 Blood Pressure 194/108 H 06/04/18 16:10 Pulse Oximetry 97 06/04/18 16:10 Last Documented Vital Signs Temperature 97.1 F L 06/04/18 16:10 Pulse Rate 95 H 06/04/18 17:45 Respiratory Rate 16 06/04/18 17:45 Blood Pressure 148/70 H 06/04/18 17:45 Pulse Oximetry 98 06/04/18 17:45 Medical Decision Making MDM Narrative Medical decision making narrative: EKG shows sinus rhythm, no acute ischemic change, normal axis/intervals tn < 0.02 Pt's presentation is concerning for coronary etiology. Chest pain center protocol considered next most appropriate step for this patient given history and risk factors. CT pulmonary angiogram added on given persistent complaint of dyspnea and chest pain after nitro and morphine. bp improved from 200/100 to 148/70. Pt c/o anxiety, ativan 0.5mg iv ordered. d/w CLAUDIA Jay for Dr Arroyo for [facility]. CTPA shows no PE, coronary artery disease noted on CT. Medical Screen Exam Complete: Yes Emergency Medical Condition: Yes Differential Diagnosis Differential Diagnosis: NSTEMI, unstable angina, coronary vasospasm, PE, PTX, aortic dissection, pericarditis, myocarditis, endocarditis, PNA, esophageal disease, aneurysm, musculoskeletal etiologies, anxiety, cocaine/sympathomimetic abuse Lab Data Result diagrams: 06/04/18 16:40 06/04/18 16:40 Lab Results 06/04/18 06/04/18 Range/Units 16:40 16:40 CBC w Diff Auto diff final WBC 8.3 (4.0-11.0) th/mm3 RBC 5.02 (4.50-5.90) mil/mm3 Hgb 16.5 (13.0-17.0) gm/dL Hct 48.2 (39.0-51.0) % MCV 96.1 (80.0-100.0) fL MCH 32.8 (27.0-34.0) pg MCHC 34.2 (32.0-36.0) % RDW 12.1 (11.6-17.2) % Plt Count 158 (150-450) th/mm3 MPV 10.6 (7.0-11.0) fL Neut % (Auto) 67.6 (16.0-70.0) % Lymph % (Auto) 21.3 (9.0-44.0) % [place] % (Auto) 8.0 (0.0-8.0) % Eos % (Auto) 2.3 (0.0-4.0) % Baso % (Auto) 0.8 (0.0-2.0) % Neut # (Auto) 5.5 (1.8-7.7) th/mm3 Lymph # (Auto) 1.8 (1.0-4.8) th/mm3 [place] # (Auto) 0.7 (0.0-0.9) th/mm3 Eos # (Auto) 0.2 (0.0-0.4) th/mm3 Baso # (Auto) 0.1 (0.0-0.2) th/mm3 WBC Differential . Differential Comment . Sodium 138 (136-145) meq/L Potassium 3.6 (3.5-5.1) meq/L Chloride 103 (98-107) meq/L Carbon Dioxide 29.3 (21.0-32.0) meq/L Anion Gap 6 (5-15) meq/L BUN 14 (7-18) mg/dL Creatinine 1.00 (0.60-1.30) mg/dL Estimated GFR 78 L (>89) mL/min Random Glucose 142 H (74-106) mg/dL Calcium 8.8 (8.5-10.1) mg/dL Magnesium 2.2 (1.5-2.5) mg/dL Total Bilirubin 0.5 (0.2-1.0) mg/dL AST 50 H (15-37) U/L ALT 96 H (12-78) U/L Alkaline Phosphatase 86 (45-117) U/L Total Creatine Kinase 158 (39-308) U/L CK-MB (CK-2) 1.2 (0.5-3.6) ng/mL Troponin I Less than 0.02 L (0.02-0.05) ng/mL Total Protein 7.6 (6.4-8.2) g/dL Albumin 3.7 (3.4-5.0) g/dL Lipase 387 (73-393) U/L Serum Alcohol Less than 3 (0-5) mg/dL Imaging Data Radiologist's impression: Chest X-Ray 06/04/18 16:27 CONCLUSION: No acute cardiopulmonary disease. Chest CTA 06/04/18 17:36 CONCLUSION: 1. Negative for central pulmonary emboli. 2. No infiltrate or failure 3. History of coronary disease by CTA Discharge Plan Discharge Disposition Patient Disposition: ED Admit(ED Internal Use Only) Discharge Order Discharge Orders: ED Use Only Admit Order (Routine); Ordered 06/04/18 Ordered By: Freddie Gipson Physicians Team ED Provider: Freddie Gipson Primary Care Provider: Ej Candelaria Attending Provider: Ej Arroyo ED Status: Admitted Observation Patient
[2018-06-04 17:31] LABS: Creatine Kinase MB 1.2 ng/mL (0.5-3.6)
[2018-06-04] MEDS ORDERED: Acetaminophen 500 MG Tablet PO PRN (18:03)
--- NOTE | 2018-06-04 18:46 | CT ---
EXAM DATE: 06/04/2018 6:30 PM EST AGE/SEX: 52 years / Male INDICATIONS: Retrosternal chest pressure and tightness. Dyspnea. CLINICAL DATA: This is the patient's initial encounter. Patient reports that signs and symptoms have been present for 1 day and indicates a pain score of 2/10. MEDICAL/SURGICAL HISTORY: Cardiovascular disease. Gastroesophageal reflux disease. Hypertension. None. RADIATION DOSE: 18.02 CTDI (mGy) COMPARISON: No prior exams available for comparison. TECHNIQUE: Volumetric scanning was performed using a multi-row detector CT scanner during bolus infu molly of 75 ml Omnipaque 350 (iohexol) nonionic water-soluble contrast as a single exam dose. The charlie a was post processed with a variety of visualization algorithms including full volume maximum intensi ty projection and sliding thin slab reformation. Using automated exposure control and adjustment of t he mA and/or kV according to patient size, radiation dose was kept as low as reasonably achievable to obtain optimal diagnostic quality images. DICOM format image data is available electronically for r eview and comparison. FINDINGS: Pulmonary Arteries: No filling defects are seen in the pulmonary arteries out to the subsegmental ve ssels. The left and right pulmonary arteries are normal in diameter. Lung: No infiltrates seen. Effusion: None. Mediastinum: No evidence of mediastinal or hilar adenopathy. Other: The axilla is unremarkable. CONCLUSION: 1. Negative for central pulmonary emboli. 2. No infiltrate or failure 3. History of coronary disease by CTA Electronically signed by: Arturo Valderrama MD Board Certified Radiologist 06/04/2018 6:45 PM EST
[2018-06-04 20:32] LABS: Creatine Kinase 145 U/L (39-308)
[2018-06-04] MEDS ORDERED: ALPRAZolam 0.5 MG Tablet PO ONE (22:43)
[2018-06-04 22:53] LABS: Creatine Kinase 127 U/L (39-308)
[2018-06-05 05:18] VITALS: RESP 20
--- NOTE | 2018-06-05 07:16 | ECG ---
Date Performed: 06/04/2018 Time Performed: 22:26:06 PTAGE: 52 years EKG: Sinus rhythm NONSPECIFIC T-WAVE ABNORMALITY BORDERLINE ECG PREVIOUS TRACING : 06/04/2018 20.06 No significant change from previous tracing noted. DOCTOR: Guilherme Ramírez Interpretating Date/Time 06/05/2018 07:15:05
--- NOTE | 2018-06-05 07:18 | ECG ---
Date Performed: 06/04/2018 Time Performed: 20:06:47 PTAGE: 52 years EKG: Sinus rhythm NORMAL ECG PREVIOUS TRACING : 06/04/2018 16.16 No significant change from previous tracing noted. DOCTOR: Guilherme Ramírez Interpretating Date/Time 06/05/2018 07:16:02
[2018-06-05 08:50] VITALS: BP 134/80; TEMP 97.8; O2SAT 96
[2018-06-05] MEDS ORDERED: amLODIPine 10 MG Tablet PO SCH (09:00)
--- NOTE | 2018-06-05 09:06 | P.HP ---
History of Present Illness Primary Care Physician: Ej Candelaria MD Chief Complaint: Chest pain History of Present Illness: This is a 52-year-old male patient with a known medical history of hypertension , hypertriglyceridemia who presented the ED with complaints of chest pain. 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 He states that the pain became worse was carried distally tight in nature with associated shortness of breath. He denies any associated nausea , vomiting or sweating. He does admit to a cardiac stress test a year ago which was negative for any ischemia. He said at that time he had similar complaints. He does follow with senior interactive producer, Dr. Rosario, who did perform a coronary cath approximately 15 years ago with angioplasty and no stent placement. Patient denies any recent illness including fever, chills, headache , abdominal pain, nausea, vomiting, diarrhea or dysuria. He does admits to a nonproductive cough. It should be noted that patient has a significant family medical history of cardiovascular disease, his brother the age of 57 of a massive heart attack as well as father having his first heart attack at the age of 50. He does admit to high triglycerides although has not had his lipids checked in a while, does not take anything for hypertriglyceridemia. Patient does admit to a history of hypertension on amlodipine with reported controlled blood pressure at home. He does admit to tobacco abuse, smokes 1 pack/day of cigarettes since his teens. He also drinks alcohol daily, 2 glasses of wine. - Diagnosis (1) Chest pain Review of Systems All other systems reviewed negative except as stated in HPI PMFSH - History History Provided By: Patient - Medical History Medical History: Medical History (Last Reviewed 06/05/18 @ 09:23 by Brigid Thompson) CAD (coronary artery disease) Elevated cholesterol GERD (gastroesophageal reflux disease) Hypertension - Surgical History Surgical History: Surgical History (Last Reviewed 06/05/18 @ 09:23 by Brigid Thompson) H/O angioplasty - Family History Family History: Family History (Last Updated 06/05/18 @ 09:23 by Brigid Thompson) Brother Cardiovascular disease Father Cardiovascular disease - Social History I have reviewed the patient's Social History: Yes - Tobacco History Second Hand Smoke Exposure: Yes Tobacco Use In Past 30 Days: No Smoking Status: Current every day smoker Tobacco Type: Cigarettes - Alcohol History How Often Do You Have a Drink Containing Alcohol: 4 or more times a week - Substance Use History Substance History: No History of Abuse - Travel History Recent Travel in the [place] Within the Last 8 Weeks: No Recent Travel Out of the Country Within the Last 8 Weeks: No - Immunization History Tetanus Immunization: >5 Years Medications and Allergies Active Medications: Active Medications Acetaminophen (Tylenol) 500 mg PO Q4H PRN PRN Reason: HEADACHE Amlodipine Besylate (Norvasc) 10 mg PO DAILY [facility] Last Admin: 06/05/18 08:18 Dose: 10 mg Nicotine (Habitrol 21 Mg Patch.24 Hr) 1 patch T-DERMAL DAILY [facility] Last Admin: 06/05/18 08:18 Dose: 1 patch Nitroglycerin (Nitrostat Sl) 0.4 mg SL Q5M PRN PRN Reason: CHEST PAIN Ondansetron HCl (Zofran Inj) 4 mg IV.PUSH Q6H PRN PRN Reason: NAUSEA Patch Removal (Remove Old Patch) 1 each T-DERMAL DAILY [facility] Last Admin: 06/05/18 08:18 Dose: 1 each Sodium Chloride (Ns Flush) 2 ml IV.FLUSH BID [facility] Last Admin: 06/05/18 08:22 Dose: 2 ml Sodium Chloride (Ns Flush) 2 ml IV.FLUSH PRN PRN PRN Reason: FLUSH AFTER USING IV ACCESS Allergies Allergy/AdvReac Type Severity Reaction Status Date / Time clindamycin Allergy Severe Respiratory Verified 06/04/18 16:10 Failure codeine Allergy Intermediate itch Verified 06/04/18 16:10 Home Medications Medication Instructions Recorded Confirmed Type amlodipine 10 mg PO DAILY 06/04/18 06/04/18 History Exam Vital signs: Vital Signs 06/04/18 16:10 06/04/18 16:35 06/04/18 16:53 Temperature 97.1 F L Pulse Rate 105 H 104 H 100 H Respiratory Rate 16 16 16 Blood Pressure 194/108 H 166/97 H 142/88 H Pulse Oximetry 97 99 97 06/04/18 16:57 06/04/18 16:58 06/04/18 17:03 Temperature Pulse Rate 100 H 102 H Respiratory Rate 16 16 16 Blood Pressure 150/90 H 111/66 Pulse Oximetry 97 96 06/04/18 17:08 06/04/18 17:10 06/04/18 17:11 Temperature Pulse Rate 109 H Respiratory Rate 16 16 16 Blood Pressure 137/66 Pulse Oximetry 97 06/04/18 17:34 06/04/18 17:45 06/04/18 19:30 Temperature Pulse Rate 95 H 86 Respiratory Rate 16 16 16 Blood Pressure 148/70 H 145/96 H Pulse Oximetry 98 100 06/04/18 20:00 06/05/18 00:00 06/05/18 04:00 Temperature 96.6 F L 96.8 F L 96.4 F L Pulse Rate 102 H 98 H 77 Respiratory Rate 18 18 20 Blood Pressure 138/67 129/74 142/79 H Pulse Oximetry 97 95 95 06/05/18 08:00 Temperature 97.8 F Pulse Rate 82 Respiratory Rate 20 Blood Pressure 134/80 Pulse Oximetry 96 Intake & Output 06/04/18 06/05/18 06/05/18 18:59 06:59 18:59 Intake Total 120 / 120 240 / 240 Output Total 200 / 200 Balance 120 / 120 40 / 40 Weight 92 kg 94.1 kg Intake: Oral 120 / 120 240 / 240 Output: Urine 200 / 200 Other: # Voids 0 Weight On Admission 93.5 kg Narrative: GENERAL: Well-developed, well-nourished patient in [facility]. SKIN: Warm and dry. No rash. HEAD: Normocephalic. Atraumatic. EYES: Pupils equal and round. No scleral icterus. No injection or drainage. ENT: No nasal bleeding or discharge. Mucous membranes pink and moist. NECK: Supple. Trachea midline. CARDIOVASCULAR: Regular rate and rhythm. S1, S2 noted. No murmur appreciated. No chest pain to palpation. RESPIRATORY: No accessory muscle use. Clear to auscultation. Breath sounds equal bilaterally. GASTROINTESTINAL: Abdomen soft, non-tender, nondistended. Normoactive bowel sounds x4. MUSCULOSKELETAL: No obvious deformities. Extremities without clubbing, cyanosis , or edema. NEUROLOGICAL: Awake and alert. No obvious cranial nerve deficits. Motor grossly within normal limits. 5/5 muscle strength in bilateral upper and lower extremities. Normal speech. PSYCHIATRIC: Appropriate mood and affect; insight and judgment normal. Results - Labs CBC & Chem 7: 06/04/18 16:40 06/04/18 16:40 Labs: Laboratory Results - last 24 hr 06/04/18 06/04/18 06/04/18 16:40 16:40 20:00 CBC w Diff Auto diff final WBC 8.3 RBC 5.02 Hgb 16.5 Hct 48.2 MCV 96.1 MCH 32.8 MCHC 34.2 RDW 12.1 Plt Count 158 MPV 10.6 Neut % (Auto) 67.6 Lymph % (Auto) 21.3 [place] % (Auto) 8.0 Eos % (Auto) 2.3 Baso % (Auto) 0.8 Neut # (Auto) 5.5 Lymph # (Auto) 1.8 [place] # (Auto) 0.7 Eos # (Auto) 0.2 Baso # (Auto) 0.1 WBC Differential . Differential Comment . Sodium 138 Potassium 3.6 Chloride 103 Carbon Dioxide 29.3 Anion Gap 6 BUN 14 Creatinine 1.00 Estimated GFR 78 L Random Glucose 142 H Calcium 8.8 Magnesium 2.2 Total Bilirubin 0.5 AST 50 H ALT 96 H Alkaline Phosphatase 86 Total Creatine Kinase 158 145 CK-MB (CK-2) 1.2 Troponin I Less than 0.02 L Less than 0.02 L Total Protein 7.6 Albumin 3.7 Lipase 387 Serum Alcohol Less than 3 06/04/18 22:30 CBC w Diff WBC RBC Hgb Hct MCV MCH MCHC RDW Plt Count MPV Neut % (Auto) Lymph % (Auto) [place] % (Auto) Eos % (Auto) Baso % (Auto) Neut # (Auto) Lymph # (Auto) [place] # (Auto) Eos # (Auto) Baso # (Auto) WBC Differential Differential Comment Sodium Potassium Chloride Carbon Dioxide Anion Gap BUN Creatinine Estimated GFR Random Glucose Calcium Magnesium Total Bilirubin AST ALT Alkaline Phosphatase Total Creatine Kinase 127 CK-MB (CK-2) Troponin I Less than 0.02 L Total Protein Albumin Lipase Serum Alcohol - Imaging Impressions Chest X-Ray 06/04/18 16:27 CONCLUSION: No acute cardiopulmonary disease. Chest CTA 06/04/18 17:36 CONCLUSION: 1. Negative for central pulmonary emboli. 2. No infiltrate or failure 3. History of coronary disease by CTA Caprini VTE Risk Assessment Caprini VTE Risk Assessment: No/Low Risk (score <= 1) Caprini Risk Assessment Model: Point Value = 1 Point Value = 2 Point Value = 3 Point Value = 5 Age 41-60 Minor surgery BMI > 25 kg/m2 Swollen legs Varicose veins or History of unexplained or recurrent spontaneous Oral contraceptives or hormone replacement Sepsis (< 1 month) Serious lung disease, including pneumonia (< 1 month) Abnormal pulmonary function Acute myocardial infarction Congestive heart failure (< 1 month) History of inflammatory bowel disease Medical patient at bed rest Age 61-74 Arthroscopic surgery Major open surgery (> 45 min) Laparoscopic surgery (> 45 min) Malignancy Confined to bed (> 72 hours) Immobilizing plaster cast Central venous access Age >= 75 History of VTE Family history of VTE Factor V Leiden Prothrombin [id number] Lupus anticoagulant Anticardiolipin antibodies Elevated serum homocysteine Heparin-induced thrombocytopenia Other congenital or acquired thrombophilia Stroke (< 1 month) Elective arthroplasty Hip, pelvis, or leg fracture Acute spinal cord injury (< 1 month) Prophylaxis Regimen: Total Risk Factor Score Risk Level Prophylaxis Regimen 0-1 Low Early ambulation 2 Moderate Order ONE of the following: *Sequential Compression Device (SCD) *Heparin 5000 units SQ BID 3-4 Higher Order ONE of the following medications: *Heparin 5000 units SQ TID *Enoxaparin/Lovenox 40 mg SQ daily (WT < 150 kg, CrCl > 30 mL/min) *Enoxaparin/Lovenox 30 mg SQ daily (WT < 150 kg, CrCl > 10-29 mL/min) *Enoxaparin/Lovenox 30 mg SQ BID (WT < 150 kg, CrCl > 30 mL/min) AND/OR *Sequential Compression Device (SCD) 5 or more Highest Order ONE of the following medications: *Heparin 5000 units SQ TID (Preferred with Epidurals) *Enoxaparin/Lovenox 40 mg SQ daily (WT < 150 kg, CrCl > 30 mL/min) *Enoxaparin/Lovenox 30 mg SQ daily (WT < 150 kg, CrCl > 10-29 mL/min) *Enoxaparin/Lovenox 30 mg SQ BID (WT < 150 kg, CrCl > 30 mL/min) AND *Sequential Compression Device (SCD) Assessment and Plan - Assessment (1) Chest pain Code(s): R07.9 - Chest pain, unspecified Status: Acute - Plan This is a 52-year-old male patient who presented to the ED with Chest pain -Patient has been admitted to the chest pain center for observation. -Serial EKGs and serial troponin have been ordered for ruling out ACS purposes. Troponin trend flat. -EKG reviewed, normal sinus rhythm, no ST changes to indicate any ischemia. -Continued on cardiac telemetry overnight, no arrhythmias noted. -CTA was done in the ED, secondary to persistent dyspnea and chest pain after nitro and morphine, this was negative for any pulmonary embolism, infiltrate, heart failure. -CBC and BMP reviewed, essentially unremarkable. Added aspirin to regimen. -ACS ruled out with serial EKGs and serial troponins. -Patient will undergo a cardiac Lexiscan to further rule out any ischemia. -Patient is stable at this time and agreeable to the plan. -Further hospitalization and treatment plan will depend on nuclear imaging results. Tobacco abuse: Encouraged cessation. Nicotine patch in place. Hypertension, chronic -Patient presented with significant uncontrolled pressure with systolic in the 200s, this has improved significantly since being here. -He was given IV Ativan as well as some Xanax. -He states that he has been stressed out with life stressors of his job and family as well as every time he gets chest pain he gets concerned because his brother just a year ago from a massive heart attack. -Will continue to monitor blood pressure trends. Stable at this time. History of hypertriglyceridemia: Not on any medications at home. Will add lipids to labs. Follow. DVT prophylaxis: SCDs. Emulation.
[2018-06-05 09:22] VITALS: PULSE 79
[2018-06-05] MEDS ORDERED: ALPRAZolam 0.5 MG Tablet PO ONE (09:30)
[2018-06-05] MEDS ORDERED: Aspirin 325 MG Tablet PO SCH (10:00)
--- NOTE | 2018-06-05 10:53 | ECG ---
Date Performed: 06/04/2018 Time Performed: 16:16:27 PTAGE: 52 years EKG: SINUS TACHYCARDIA NONSPECIFIC T-WAVE ABNORMALITY ABNORMAL ECG PREVIOUS TRACING : 04/29/2017 11.32 Compared to previous tracing, nonspecific T wave abnormalit y is now present. DOCTOR: Guilherme Ramírez Interpretating Date/Time 06/05/2018 10:52:08
[2018-06-05] MEDS ORDERED: Regadenoson Inj 0.4 MG/5 ML Syringe IV.PUSH ONE (11:07)
--- NOTE | 2018-06-05 12:33 | NM ---
EXAM DATE: 06/05/2018 12:18 PM EST AGE/SEX: 52 years / Male INDICATIONS:Angina. Coronary artery disease Retro-sternal chest pain with dyspnea. CLINICAL DATA: This is the patient's initial encounter. Patient reports that signs and symptoms have been present for 1 day and indicates a pain score of 6/10. MEDICAL/SURGICAL HISTORY: Hypertension. Gastroesophageal reflux disease. Hypercholesterolemia . Smoker. Angioplasty. COMPARISON: No prior exams available for comparison. DOSE: 8.7 mCi Tc 99m Myoview at rest 27.2 mCi [id number] at stress 0.4 mg Lexiscan STRESS SYMPTOMS: Dyspnea and headache. EJECTION FRACTION: 65 % TECHNIQUE: The patient underwent pharmacologic stress with infusion of prescribed dose. Continuous ECG tracing was monitored during stress. Gated SPECT imaging was performed after stress and conventi onal SPECT imaging was performed at rest. The examination was performed on a SPECT/CT scanner, both attenuation and non-corrected datasets were reviewed. FINDINGS: Distribution: The maximum perfused segment at stress is in the septal wall. Perfusion Study: The pattern of perfusion at stress is within normal limits. There is a summed st ress score of 0. Gated Study: There are intact wall motion and wall thickening without hypokinetic or dyskinetic segm ents. The ejection fraction is calculated at 65%. RISK CATEGORY: Low (<1% Annual Motality Rate) CONCLUSION: 1. Normal wall motion and calculated ejection fraction. 2. No fixed or reversible defects to suggest ischemia or infarction. Electronically signed by: Ej Radford MD Board Certified Radiologist 06/05/2018 12:31 PM VENKATA Cuevas
[2018-06-05 14:08] LABS: Chol/HDL Ratio 11.11 Ratio; HDL Cholesterol 21.6 mg/dL (40.0-60.0)
--- NOTE | 2018-06-05 15:14 | TR ---
Date Performed: 06/05/2018 Time Performed: 11:37:24 DOCTOR: Daron Devine DRUG LIST: CLINICAL HISTORY: REASON FOR TEST: Chest pain REASON FOR ENDING: OBSERVATION: CONCLUSION: COMMENTS: Lexiscan stress test was performed under standard four minute protocol. Radionuclide was injected one minute prior to ending the test. No electrocardiographic abormalities were present t o suggest ischemia. Nuclear imaging and interpretation are pending.
== END 2018-06-05 13:02 | disposition home or self-care (01) ==
LOC: PHEDA 16:07 → PHED 16:07 → PH3 20:41
PROVIDERS: ADMIT Hospitalist; ATTEND Hospitalist